=== PATIENT | male | born 1985 | race Caucasian/White ===

== ENCOUNTER 2016-11-07 10:00 | Emergency (ER) | payer SELFPAY ==
--- NOTE | 2016-11-07 10:56 | Emergency Department Report ---
Entered by SWATHI OSORIO, acting as scribe for JULIANNA FLORES PA. Chief Complaint: Head Injury Stated Complaint: HEAD INJURY WHILE WORKING Time Seen by Provider: 11/07/16 10:16 - HPI History of Present Illness: 31 y/o pt presents with pressure in his head and both ears as a result of an overhead door hitting him in the head at work 8 days ago. Pt notes head trauma and LOC for 1-2 seconds. Sx include inability to sleep, dizziness and neck pain but pt denies ear drainage or bleeding. He notes being evaluated at [facility] after the incident. - ROS Review of Systems: as noted in HPI - Exam Vital Signs: Vital Signs 11/07/16 10:16 Temperature 98.3 F Pulse Rate 75 Respiratory 17 Rate Blood Pressure 119/84 O2 Sat by Pulse 100 Oximetry Physical Exam: General: 31 y/o male in no acute distress. Well-developed, well-nourished. CV: Regular rate and rhythm. No murmurs rubs or gallops. Lungs: Clear to auscultation bilaterally. Abdomen: No tenderness to palpation. No guarding or rebound tenderness. Normal bowel sounds. Mini Neuro: Alert and oriented 3. Ear: Symmetrical, atraumatic, non tender, ear canal clear with moderate cerumen , tympanic membrane non inflamed. Gross auditory nml bilaterally. Neurological: no neurological focal deficits, motor strength was 5/5 in the upper and lower extremities. , sensory function was intact. Head: atraumatic MSE screening note: Focused history and physical exam performed. Due to findings the following was ordered: ED Medical Decision Making - Medical Decision Making ct head was ordered, Dr. Martinez stated patient only needed CT head. Patient was in NAD. no neurological focal deficits. ED Disposition for MSE Condition: Stable This documentation as recorded by the scribe,SWATHI OSORIO,accurately reflects the service I personally performed and the decisions made by ,JULIANNA FLORES PA.
--- NOTE | 2016-11-07 11:25 | Cat Scan Report ---
CT HEAD WITHOUT CONTRAST INDICATION: Head trauma, headache. COMPARISON: None similar at this institution. FINDINGS: Noncontrast head CT demonstrates normal ventricles and sulci without acute or recent infarct, hemorrhage, mass effect or midline shift. No abnormal extra-axial fluid collections. Posterior fossa structures and basilar cisterns appear within normal limits. Clear paranasal sinuses and mastoid air cells. Intact calvarium. Normal overlying scalp soft tissues. CONCLUSION: No acute intracranial CT abnormality, as described. Thank you for the opportunity to participate in this patient's care.
--- NOTE | 2016-11-07 14:13 | Emergency Department Report ---
ED Head Trauma HPI - General Chief complaint: Head Injury Stated complaint: HEAD INJURY WHILE WORKING Time Seen by Provider: 11/07/16 12:10 Source: patient Mode of arrival: Ambulatory Limitations: No Limitations - History of Present Illness MD Complaint: head injury -: days(s) Mechanism of Injury: work related injury (item fell on head) Location: parietal Loss of Consciousness: no Previous Trauma to this Area: No Place: work Radiation: none Severity: mild Severity scale (0 -10): 1 Quality: aching Consistency: constant Other Injuries: none Associated Symptoms: confusion, amnesia. denies: repetitive questioning, vision changes, nausea, vomiting, vertigo, syncope, numbness, weakness, tingling , neck pain - Related Data Home Medications Medication Instructions Recorded Confirmed Last Taken Ibuprofen [Motrin 600 MG tab] 600 mg PO TID 11/07/16 11/07/16 11/07/16 Meclizine [Antivert] 25 mg PO DAILY 11/07/16 11/07/16 11/07/16 Allergies/Adverse reactions: Allergies Allergy/AdvReac Type Severity Reaction Status Date / Time No Known Allergies Allergy Unverified 11/07/16 10:20 ED Review of Systems ROS: Stated complaint: HEAD INJURY WHILE WORKING Other details as noted in HPI Other: GENERAL: No weight change, fatigue, weakness, fever, chills, or night sweats SKIN: No changes in skin or hair, no itching, no rashes, no jaundice HEAD: No trauma, headache, or visual changes EYES: No blurriness, tearing, itching, acute visual loss, conjunctival discoloration, or scleral icterus EARS: No hearing loss, tinnitus, vertigo, or earache NOSE: No rhinorrhea, stuffiness, sneezing, itching, or epistaxis MOUTH: No bleeding gums, hoarseness, sore throat, or swelling CARDIAC: No new murmur, chest pain, palpitations, dyspnea on exertion, orthopnea , PND, or edema RESPIRATORY: No shortness of breath, wheeze, cough, sputum production, hemoptysis, pneumonia, asthma, bronchitis, or emphysema GI: No change in appetite, nausea, vomiting, dysphagia, change in bowel frequency, diarrhea, constipation, bleeding, hematemesis, melena, hematochezia, or abdominal pain URINARY: No frequency, urgency, polyuria, dysuria, hematuria, or incontinence MUSCULOSKELETAL: No muscle weakness, joint stiffness, decrease in range of motion, redness, swelling, tenderness NEUROLOGIC: No loss of sensation, numbness, tingling, tremors, weakness, paralysis, seizures HEMATOLOGIC: No anemia, easy bruising, bleeding, petechiae, or purpura ENDOCRINE: No hot or cold intolerance, sweating, polyuria, polydipsia or, polyphagia no thyroid problems PSYCHIATRIC: No change in mood, no anxiety, no depression ED Past Medical Hx - Past Medical History Previous Medical History?: No - Surgical History Past Surgical History?: No - Social History Smoking Status: Never Smoker Substance Use Type: None - Medications Home Medications: Home Medications Medication Instructions Recorded Confirmed Last Taken Type Ibuprofen [Motrin 600 MG tab] 600 mg PO TID 11/07/16 11/07/16 11/07/16 History Meclizine [Antivert] 25 mg PO DAILY 11/07/16 11/07/16 11/07/16 History ED Physical Exam - General Limitations: No Limitations - Other Other exam information: GENERAL: Patient in no acute distress HEAD: Normocephalic, atraumatic EYES: PERRLA, EOM intact, no scleral icterus, no papilledema, no conjunctival hemorrhage, visual gonzalez and acuity wnl, NOSE: No tenderness, discharge, sinus tenderness MOUTH: No erythema, bleeding, exudate HEART: Regular rate and rhythm, no murmur, S1-S2 are auscultated, pulses are symmetric LUNGS: No wheezing, rales, rhonchi, bilateral breath sounds ABDOMEN: Normal bowel sounds, no tenderness, no rebound, no guarding, no masses , no CVA tenderness MUSCULOSKELETAL: Normal joint range of motion, no redness, no swelling, no tenderness NEUROLOGIC: GCS 15, Alert and Oriented x3, Cranial nerves intact, normal sensation, normal strength, normal gait, no cerebellar deficit PSYCHIATRIC: No homicidal or suicidal ideation, no anxiety, no depression, no hallucinations SKIN: Skin is warm and dry, no wounds, no rashes ED Course Vital Signs 11/07/16 11/07/16 11/07/16 10:16 11:55 13:00 Temperature 98.3 F 98.1 F 98.7 F Pulse Rate 75 68 68 Respiratory 17 18 14 Rate Blood Pressure 119/84 Blood Pressure 113/75 115/2 [Left] O2 Sat by Pulse 100 100 100 Oximetry - Radiology Data Radiology results: report reviewed - Medical Decision Making Patient comfortable. Updated with results. Plan discharge with outpatient follow-up. Patient agrees with plan and will return if symptoms worsen. Critical care attestation.: If time is entered above; I have spent that time in minutes in the direct care of this critically ill patient, excluding procedure time. ED Disposition Clinical Impression: Head contusion Qualifiers: Encounter type: initial encounter Contusion of head detail: unspecified part of head Qualified Code(s): S00.93XA - Contusion of unspecified part of head, initial encounter Concussion Qualifiers: Encounter type: initial encounter Loss of consciousness presence/duration: without LOC Qualified Code(s): S06.0X0A - Concussion without loss of consciousness, initial encounter Disposition: DISCHARGED TO HOME OR SELFCARE Is pt being admited?: No Condition: Stable Instructions: Concussion (ED) Referrals: PRIMARY CAREMD [Primary Care Provider] - 2-3 Days JUSTIN PAK MD [Staff Physician] - 2-3 Days Time of Disposition: 14:08
[2016-11-07 15:24] VITALS: BP 115/2
== END 2016-11-07 14:18 | disposition home or self-care (01) ==
LOC: ED 10:00
DX: S06.0X0A Concussion without loss of consciousness, initial encounter (principal); S00.93XA Contusion of unspecified part of head, initial encounter; W20.8XXA Other cause of strike by thrown, projected or falling object, initial encounter; Y93.9 Activity, unspecified; Y92.9 Unspecified place or not applicable; Y99.9 Unspecified external cause status
CPT/HCPCS: 70450; 99283

== ENCOUNTER 2017-04-25 11:37 | Inpatient (IN) | payer SELFPAY ==
--- NOTE | 2017-04-25 15:37 | XRay Report ---
Right ankle 3 views: History: Ankle pain. Findings: No bony or articular abnormality. No fracture dislocation or soft tissue calcification. Impression: Essentially negative right ankle.
--- NOTE | 2017-04-25 15:38 | XRay Report ---
Right foot 3 views: History: 14 ankle pain. Findings: No bony or articular abnormality. No fracture dislocation or periosteal reaction. Impression: Essentially negative right foot.
[2017-04-25] MEDS ORDERED: ZOSYN/NS 4.5GM/100ML 4.5 GM/100 ML VIAL IV ONE (16:04)
[2017-04-25] MEDS ORDERED: VANCOMYCIN/NS 1 GM/250 ML 1 GM/250 ML BAG IV ONE (16:04)
--- NOTE | 2017-04-25 16:16 | Emergency Department Report ---
<NING CHERRY - Last Filed: 04/25/17 17:40> ED Lower Extremity HPI - General Chief Complaint: Extremity Injury, Lower Stated Complaint: RIGHT LEG AND ANKLE PAIN Time Seen by Provider: 04/25/17 14:33 - Related Data Home Medications Medication Instructions Recorded Confirmed Last Taken No Known Home Medications [No 04/25/17 04/25/17 Unknown Reported Home Medications] Allergies Allergy/AdvReac Type Severity Reaction Status Date / Time No Known Allergies Allergy Unverified 11/07/16 10:20 ED Review of Systems ROS: Stated complaint: RIGHT LEG AND ANKLE PAIN Other details as noted in HPI ED Past Medical Hx - Medications Home Medications: Home Medications Medication Instructions Recorded Confirmed Last Taken Type No Known Home Medications [No 04/25/17 04/25/17 Unknown History Reported Home Medications] ED Course Vital Signs 04/25/17 04/25/17 11:47 17:49 Temperature 99.1 F Pulse Rate 100 H Respiratory 18 18 Rate Blood Pressure 122/84 O2 Sat by Pulse 99 Oximetry ED Lower Extremity MDM - Lab Data Result diagrams: 04/25/17 16:08 04/25/17 16:08 Laboratory Results - last 24 hr 04/25/17 04/25/17 04/25/17 16:08 16:08 16:08 WBC 14.0 H RBC 5.16 H Hgb 15.9 H Hct 47.0 H MCV 91 MCH 31 MCHC 34 RDW 13.4 Plt Count 217 Lymph % (Auto) 7.1 L [place] % (Auto) 6.0 Eos % (Auto) 0.0 Baso % (Auto) 0.1 Lymph # 1.0 L [place] # 0.8 Eos # 0.0 Baso # 0.0 Seg Neutrophils % 86.8 H Seg Neutrophils # 12.2 H Sodium 143 Potassium 4.6 Chloride 101.0 Carbon Dioxide 29 Anion Gap 18 BUN 10 Creatinine 0.8 Estimated GFR > 60 BUN/Creatinine Ratio 13 Glucose 132 H Lactic Acid 2.40 H* Calcium 9.3 Total Bilirubin 1.00 AST 57 H ALT 149 H Alkaline Phosphatase 110 C-Reactive Protein 7.60 H Total Protein 7.2 Albumin 4.4 Albumin/Globulin Ratio 1.6 - Medical Decision Making I have seen and examined this patient myself. I agree with the PA or [employer] plan as discussed. Tino Cherry Critical care attestation.: If time is entered above; I have spent that time in minutes in the direct care of this critically ill patient, excluding procedure time. ED Disposition Clinical Impression: Cellulitis Qualifiers: Site of cellulitis: extremity Site of cellulitis of extremity: lower extremity Laterality: right Qualified Code(s): L03.115 - Cellulitis of right lower limb Disposition: OP ADMIT IP TO THIS HOSP Condition: Stable Referrals: PRIMARY CARE, [Primary Care Provider] - 3-5 Days <AVTAR ARELLANO - Last Filed: 04/25/17 18:24> ED Lower Extremity HPI - General Source: patient Mode of arrival: Ambulatory Limitations: Other - History of Present Illness Initial Comments: This is a 32-year-old male nontoxic, well nourished in appearance, no acute signs of distress presents to the ED complaining of right ankle pain and swelling 2 days. Patient stated he woke up one day and developed this with any trauma. Patient denies any numbness, tingling, fever, chills, nausea, vomiting, chest pain, headache or stiff neck. Patient stated he has limited range of motion due to pain and swelling. Patient also stated area is erythema present. Patient denies any allergies or past medical history. Complaint: ankle injury -: Gradual, days(s) (2) Injury: Ankle: Right Place: home Severity: moderate Severity scale (0 -10): 8 Improves With: nothing Worsens With: weight bearing, movement, palpation Associated Symptoms: swelling, unable to bear weight. denies: snap/pop sensation, numbness, tingling ED Review of Systems Constitutional: denies: chills, fever Eyes: denies: eye pain, eye discharge, vision change ENT: denies: ear pain, throat pain Respiratory: denies: cough, shortness of breath, wheezing Cardiovascular: denies: chest pain, palpitations Endocrine: no symptoms reported Gastrointestinal: denies: abdominal pain, nausea, diarrhea Genitourinary: denies: urgency, dysuria Musculoskeletal: denies: back pain, joint swelling, arthralgia Skin: denies: rash, lesions Neurological: denies: headache, weakness, paresthesias Psychiatric: denies: anxiety, depression Hematological/Lymphatic: denies: easy bleeding, easy bruising ED Past Medical Hx - Past Medical History Previous Medical History?: No - Surgical History Past Surgical History?: No - Social History Smoking Status: Never Smoker Substance Use Type: None ED Physical Exam - General Limitations: Other General appearance: alert, in no apparent distress - Head Head exam: Present: atraumatic, normocephalic, normal inspection - Eye Eye exam: Present: normal appearance, PERRL, EOMI. Absent: scleral icterus, conjunctival injection, nystagmus, periorbital swelling, periorbital tenderness Pupils: Present: normal accommodation - ENT ENT exam: Present: normal exam, normal orophraynx, mucous membranes moist, TM's normal bilaterally, normal external ear exam - Neck Neck exam: Present: normal inspection, full ROM. Absent: tenderness, meningismus, lymphadenopathy, thyromegaly - Respiratory Respiratory exam: Present: normal lung sounds bilaterally. Absent: respiratory distress, wheezes, rales, rhonchi, stridor, chest wall tenderness, accessory muscle use, decreased breath sounds, prolonged expiratory - Cardiovascular Cardiovascular Exam: Present: regular rate, normal rhythm, tachycardia, normal heart sounds. Absent: bradycardia, irregular rhythm, systolic murmur, diastolic murmur, rubs, gallop - GI/Abdominal GI/Abdominal exam: Present: soft, normal bowel sounds. Absent: distended, tenderness, guarding, rebound, rigid, diminished bowel sounds - Rectal Rectal exam: Present: deferred - Extremities Exam Extremities exam: Present: normal inspection, full ROM, tenderness, normal capillary refill. Absent: pedal edema, joint swelling, calf tenderness - Expanded Lower Extremity Exam Right Hip exam: Present: normal inspection, full ROM Upper Leg exam: Present: normal inspection, full ROM Knee exam: Present: normal inspection, full ROM Lower Leg exam: Present: normal inspection, full ROM. Absent: Glen's sign Ankle exam: Present: normal inspection, tenderness, swelling, erythema. Absent : full ROM, abrasion, laceration, ecchymosis, deformity, crepidus, dislocation, anterior draw sign Foot/Toe exam: Present: normal inspection, full ROM. Absent: tenderness, swelling, abrasion, laceration, ecchymosis, deformity, crepidus, dislocation, erythema, amputation, puncture wound, foreign body, calcaneal tenderness, tenderness at base of 5th metatarsal, nail avulsion, subungual hematoma Neuro vascular tendon exam: Present: no vascular compromise. Absent: pulse deficit, abnormal cap refill, motor deficit, sensory deficit, tendon deficit, extremity cold to touch, pallor, abnormal 2-point discrimination, decreased fine /light touch, foot drop, peroneal nerve deficit, significant pain with passive ROM of distal joint Gait: Positive: unable to bear weight 1 - Tenderness, erythema and swelling - Back Exam Back exam: Present: normal inspection, full ROM. Absent: tenderness, CVA tenderness (R), CVA tenderness (L), muscle spasm, paraspinal tenderness, vertebral tenderness, rash noted - Neurological Exam Neurological exam: Present: alert, oriented X3, CN II-XII intact, normal gait, reflexes normal - Psychiatric Psychiatric exam: Present: normal affect, normal mood - Skin Skin exam: Present: warm, dry, intact, normal color. Absent: rash ED Course - Reevaluation(s) Reevaluation #1: 04/25/17 16:15 Patient is speaking in full sentences with no signs of distress noted. - Consultations Consultation #1: 04/25/17 16:15 Dr. Cherry was consulted about patient history, physical exam and exam patient and agrees the plan of care and the ED. Consultation #2: 04/25/17 18:20 Dr. Carbajal was consulted about patient history, physical exam, and labs and agrees for admission under his services. Consultation #3: 04/25/17 18:24 Dr. Zhou was consulted about patient hx, physical exam, and labs and agrees to admission. ED Lower Extremity MDM - Lab Data Result diagrams: 04/25/17 16:08 04/25/17 16:08 - Radiology Data Radiology results: report reviewed interpreted by me: Dictated by radiologist Normal foot and ankle xray - Medical Decision Making 32-year-old male that presents with cellulitis of the right ankle. Patient was examined by me, Dr. Cherry, and Dr. Carbajal. CBC, BMP, uric acid, lactic acid , ESR, CRP obtained with suggestion of infection/cellulitis. Patient is stable. Patient was put on campus monitor. Patient received Zosyn and vancomycin in the ED. Dr. Carbajal accepted the patient on his services. Dr. Zhou was also consulted and agrees about admission. Patient is hemodynamically stable with stable vital signs. At time time of admission, the patient does not seem toxic or ill in appearance. No acute signs of distress noted. Patient agrees to admission treatment plan of care. No further questions noted by the patient. ED Disposition Is pt being admited?: Yes Does the pt Need Aspirin: No
[2017-04-25 16:33] LABS: Basophils % (Auto) 0.1 % (0.0-1.8); Hemoglobin 15.9 gm/dl (11.8-15.2); Mean Corpuscular HGB Conc 34 % (32-34); Mean Corpuscular Hemoglobin 31 pg (28-32); Mean Corpuscular Volume 91 fl (84-94); Platelet Count 217 K/mm3 (140-440); Red Blood Count 5.16 M/mm3 (3.65-5.03); Red Cell Distribution Width 13.4 % (13.2-15.2)
[2017-04-25 16:46] LABS: Alanine Aminotransferase 149 units/L (7-56); Albumin 4.4 g/dL (3.9-5); Albumin/Globulin Ratio 1.6 %; Alkaline Phosphatase 110 units/L (35-129); Anion Gap 18 mmol/L; BUN/Creatinine Ratio 13; Blood Urea Nitrogen 10 mg/dL (9-20); Calcium 9.3 mg/dL (8.4-10.2); Carbon Dioxide 29 mmol/L (22-30); Glucose 132 mg/dL (75-100); Potassium 4.6 mmol/L (3.6-5.0); Sodium 143 mmol/L (137-145); Total Protein 7.2 g/dL (6.3-8.2)
[2017-04-25] MEDS ORDERED: MORPHINE IV ONE (17:28)
[2017-04-25] MEDS ORDERED: TORADOL IV ONE (17:29)
[2017-04-25 18:24] LABS: Erythrocyte Sedimentation Rate 66 mm/Hr (0-20)
[2017-04-25] MEDS ORDERED: PERCOCET 5/325 PO PRN (19:40)
[2017-04-25] MEDS ORDERED: TYLENOL PO PRN (19:40)
[2017-04-25] MEDS ORDERED: MILK OF MAGNESIA PO PRN (19:40)
[2017-04-25] MEDS ORDERED: MORPHINE IV PRN (19:40)
[2017-04-25] MEDS ORDERED: ZOFRAN IV PRN (19:40)
[2017-04-25] MEDS ORDERED: DULCOLAX PR PRN (19:40)
[2017-04-25] MEDS ORDERED: MOTRIN PO PRN (19:53)
[2017-04-25] MEDS ORDERED: VANCOMYCIN 1,500 MG in NACL 0.9% 500 ML 500 ML IV ONE (20:00)
[2017-04-25] MEDS ORDERED: VANCOMYCIN PHARMACY TO DOSE IV SCH (20:00)
[2017-04-25] MEDS ORDERED: UNASYN/NS 3 GM/100 ML 3 GM/100 ML BAG IV ONE (21:19)
[2017-04-25] MEDS ORDERED: LOVENOX SUB-Q ONE (21:20)
[2017-04-25] MEDS: UNASYN/NS 3 GM/100 ML 3 GM/100 ML BAG IV SCH (21:20)
[2017-04-25] MEDS: LOVENOX SUB-Q SCH (21:30)
[2017-04-25] MEDS ORDERED: PERCOCET 5/325 ONE (21:56)
[2017-04-26] MEDS: UNASYN/NS 3 GM/100 ML 3 GM/100 ML BAG IV SCH
[2017-04-26] MEDS ORDERED: UNASYN/NS 3 GM/100 ML 3 GM/100 ML BAG IV ONE (01:08)
[2017-04-26] MEDS ORDERED: UNASYN/NS 3 GM/100 ML 3 GM/100 ML BAG IV SCH (03:00)
[2017-04-26 06:14] LABS: Hematocrit 44.7 % (35.5-45.6); Hemoglobin 15.7 gm/dl (11.8-15.2); Mean Corpuscular HGB Conc 35 % (32-34); Mean Corpuscular Hemoglobin 32 pg (28-32); Mean Corpuscular Volume 90 fl (84-94); Platelet Count 184 K/mm3 (140-440); Red Blood Count 4.98 M/mm3 (3.65-5.03); Red Cell Distribution Width 13.2 % (13.2-15.2); White Blood Count 12.5 K/mm3 (4.5-11.0)
[2017-04-26 06:37] LABS: Albumin 3.5 g/dL (3.9-5); Albumin/Globulin Ratio 0.9 %; Bilirubin,Total 1.5 mg/dL (0.1-1.2); Calcium 8.8 mg/dL (8.4-10.2); Chloride 99.4 mmol/L (98-107); Potassium 4.4 mmol/L (3.6-5.0); Total Protein 7.3 g/dL (6.3-8.2)
[2017-04-26 07:22] LABS: Basophils % (Manual) 0 % (0.0-1.8); Blastocytes % (Manual) 0 %; Eosinophils % (Manual) 0 % (0.0-4.3)
[2017-04-26 07:23] LABS: Anisocytosis 1+; Diff Status Complete; Giant Platelets Few
--- NOTE | 2017-04-26 07:49 | Event Note ---
Date: 04/25/17 See H and p in reports-Dictated
[2017-04-26] MEDS ORDERED: VANCOMYCIN/NS 1 GM/250 ML 1 GM/250 ML BAG IV SCH ×3 (09:00→18:00)
[2017-04-26] MEDS: NACL 0.9% 1000 ML 1,000 ML IV SCH ×2 (09:22→19:37)
[2017-04-26] MEDS: LOVENOX SUB-Q SCH (09:22)
--- NOTE | 2017-04-26 09:40 | History and Physical Report ---
CHIEF COMPLAINT: Right ankle swelling and redness of 1 week duration. HISTORY OF PRESENT ILLNESS: A 32-year-old male comes in for right ankle pain and swelling of 1 week, more so over the last 2 days. He developed right lateral malleolus redness and swelling and has difficulty walking, but no preceding trauma. This was preceded by left elbow redness and pain, which has resolved spontaneously. He has limited range of motion of the right ankle. PAST MEDICAL HISTORY: past medical history. SURGICAL HISTORY: None. SOCIAL HISTORY: Does not smoke. No alcohol, no recreational drugs. FAMILY HISTORY: No hypertension, no diabetes. REVIEW OF SYSTEMS: A 14-point review of systems is done, otherwise negative. No urethral discharge. No history of gout. PHYSICAL EXAMINATION: GENERAL: Young male, cooperative during examination. VITAL SIGNS: Blood pressure is 110/70, respirations 16, temperature 98, pulse is 80. HEENT: Unremarkable. Pupils equal and reactive. NECK: Supple, no lymphadenopathy, no thyromegaly. LUNGS: Clear to auscultation and percussion. Good air entry. CARDIOVASCULAR: S1, S2 heard. No gallop, no murmur, no rub. Apical impulse in left fifth intercostal space and midclavicular line. ABDOMEN: Soft and benign. No hepatosplenomegaly. No guarding, no rigidity. Hernial orifices are normal. EXTREMITIES: Radial motion of hip and knees are normal. Ankle tenderness and swelling and erythema present on the right ankle. Full range of motion is absent. Foot and toe are otherwise normal. Pedal pulses are normal. CENTRAL NERVOUS SYSTEM: Normal. LABORATORY DATA: Labs were significant for white count of 14,000, H and H of 15.9 and 47.4. CRP was high, lactic acid was 2.4. Electrolytes are normal. Glucose is 132. Uric acid was 5.4. CRP was 7.6. ASSESSMENT AND PLAN: Right ankle cellulitis, etiology very unclear. Differential diagnosis of gout still present. Uric acid is normal. We will treat it as infection. We will ask for Infectious Disease consult. The patient started on antibiotics in the form of Unasyn and vancomycin. Also, the patient started on methylprednisolone 40 mg IV to decrease the inflammation. RPR ordered. Gonococcal arthritis also in the differential diagnosis. We will defer to ID regarding the differential diagnosis. Deep venous thrombosis prophylaxis, Lovenox 40 mg subcutaneous daily. JOB# [id number] RIZWAN/SAMANTHA
--- NOTE | 2017-04-26 11:09 | Progress Note ---
Assessment and Plan Assessment and plan: Cellulitis right leg Hospitalist Physical - Physical exam Narrative exam: Gen Appearance: Not in acute distress, HEENT: normocephalic, atraumatic Neck: supple, no JVD Lungs: Clear to auscultation, no rales, no wheezing, Heart: S1 and S2 regular, no murmurs,no rubs or gallop, Abdomen: Soft , non tender, non distended, normal bowel sounds Extremity: right leg erythema,tender,swollen, no clubbing or cyanosis, Neuro : Awake,alert, oriented x 3, normal speech, moves all extremities Psych: Normal mood - Constitutional Vitals: Temp Pulse Resp BP Pulse Ox 98.6 F 85 20 117/73 98 04/26/17 07:26 04/26/17 07:26 04/26/17 07:26 04/26/17 07:26 04/26/17 07:26 Results - Labs CBC & Chem 7: 04/26/17 05:45 04/27/17 10:54 Labs: Laboratory Last Values WBC 12.5 K/mm3 (4.5-11.0) H 04/26/17 05:45 RBC 4.98 M/mm3 (3.65-5.03) 04/26/17 05:45 Hgb 15.7 gm/dl (11.8-15.2) H 04/26/17 05:45 Hct 44.7 % (35.5-45.6) 04/26/17 05:45 MCV 90 fl (84-94) 04/26/17 05:45 MCH 32 pg (28-32) 04/26/17 05:45 MCHC 35 % (32-34) H 04/26/17 05:45 RDW 13.2 % (13.2-15.2) 04/26/17 05:45 Plt Count 184 K/mm3 (140-440) 04/26/17 05:45 Lymph % (Auto) 7.1 % (13.4-35.0) L 04/25/17 16:08 [place] % (Auto) 6.0 % (0.0-7.3) 04/25/17 16:08 Eos % (Auto) 0.0 % (0.0-4.3) 04/25/17 16:08 Baso % (Auto) 0.1 % (0.0-1.8) 04/25/17 16:08 Lymph # 1.0 K/mm3 (1.2-5.4) L 04/25/17 16:08 [place] # 0.8 K/mm3 (0.0-0.8) 04/25/17 16:08 Eos # 0.0 K/mm3 (0.0-0.4) 04/25/17 16:08 Baso # 0.0 K/mm3 (0.0-0.1) 04/25/17 16:08 Add Manual Diff Complete 04/26/17 05:45 Total Counted 100 04/26/17 05:45 Seg Neutrophils % Boarding Machine Operator 04/26/17 05:45 Seg Neuts % (Manual) 55.0 % (40.0-70.0) 04/26/17 05:45 Band Neutrophils % 32.0 % 04/26/17 05:45 Lymphocytes % (Manual) 10.0 % (13.4-35.0) L 04/26/17 05:45 Reactive Lymphs % (Man) 0 % 04/26/17 05:45 Monocytes % (Manual) 3.0 % (0.0-7.3) 04/26/17 05:45 Eosinophils % (Manual) 0 % (0.0-4.3) 04/26/17 05:45 Basophils % (Manual) 0 % (0.0-1.8) 04/26/17 05:45 Metamyelocytes % 0 % 04/26/17 05:45 Myelocytes % 0 % 04/26/17 05:45 Promyelocytes % 0 % 04/26/17 05:45 Blast Cells % 0 % 04/26/17 05:45 Nucleated RBC % Not Reportable 04/26/17 05:45 Seg Neutrophils # 12.2 K/mm3 (1.8-7.7) H 04/25/17 16:08 Seg Neutrophils # Man 6.9 K/mm3 (1.8-7.7) 04/26/17 05:45 Band Neutrophils # 4.0 K/mm3 04/26/17 05:45 Lymphocytes # (Manual) 1.3 K/mm3 (1.2-5.4) 04/26/17 05:45 Abs React Lymphs (Man) 0.0 K/mm3 04/26/17 05:45 Monocytes # (Manual) 0.4 K/mm3 (0.0-0.8) 04/26/17 05:45 Eosinophils # (Manual) 0.0 K/mm3 (0.0-0.4) 04/26/17 05:45 Basophils # (Manual) 0.0 K/mm3 (0.0-0.1) 04/26/17 05:45 Metamyelocytes # 0.0 K/mm3 04/26/17 05:45 Myelocytes # 0.0 K/mm3 04/26/17 05:45 Promyelocytes # 0.0 K/mm3 04/26/17 05:45 Blast Cells # 0.0 K/mm3 04/26/17 05:45 WBC Morphology Not Reportable 04/26/17 05:45 Hypersegmented Neuts Not Reportable 04/26/17 05:45 Hyposegmented Neuts Not Reportable 04/26/17 05:45 Hypogranular Neuts Not Reportable 04/26/17 05:45 Smudge Cells Not Reportable 04/26/17 05:45 Toxic Granulation Not Reportable 04/26/17 05:45 Toxic Vacuolation Not Reportable 04/26/17 05:45 Dohle Bodies Not Reportable 04/26/17 05:45 Pelger-Huet Anomaly Not Reportable 04/26/17 05:45 Cassandra Rods Not Reportable 04/26/17 05:45 Platelet Estimate Appears normal 04/26/17 05:45 Clumped Platelets Not Reportable 04/26/17 05:45 Plt Clumps, EDTA Not Reportable 04/26/17 05:45 Large Platelets Not Reportable 04/26/17 05:45 Giant Platelets Few 04/26/17 05:45 Platelet Satelliting Not Reportable 04/26/17 05:45 Plt Morphology Comment Not Reportable 04/26/17 05:45 RBC Morphology Not Reportable 04/26/17 05:45 Dimorphic RBCs Not Reportable 04/26/17 05:45 Polychromasia Not Reportable 04/26/17 05:45 Hypochromasia Not Reportable 04/26/17 05:45 Poikilocytosis Not Reportable 04/26/17 05:45 Anisocytosis 1+ 04/26/17 05:45 Microcytosis Not Reportable 04/26/17 05:45 Macrocytosis Not Reportable 04/26/17 05:45 Spherocytes Not Reportable 04/26/17 05:45 Pappenheimer Bodies Not Reportable 04/26/17 05:45 Sickle Cells Not Reportable 04/26/17 05:45 Target Cells Not Reportable 04/26/17 05:45 Tear Drop Cells Not Reportable 04/26/17 05:45 Ovalocytes Not Reportable 04/26/17 05:45 Helmet Cells Not Reportable 04/26/17 05:45 [place] Bodies Not Reportable 04/26/17 05:45 [place] Rings Not Reportable 04/26/17 05:45 [place] Cells Not Reportable 04/26/17 05:45 Bite Cells Not Reportable 04/26/17 05:45 Crenated Cell Not Reportable 04/26/17 05:45 Elliptocytes Not Reportable 04/26/17 05:45 Acanthocytes (Spur) Not Reportable 04/26/17 05:45 Rouleaux Not Reportable 04/26/17 05:45 Hemoglobin C Crystals Not Reportable 04/26/17 05:45 Schistocytes Not Reportable 04/26/17 05:45 Malaria parasites Not Reportable 04/26/17 05:45 ESR 66 mm/Hr (0-20) 04/25/17 16:08 Asa Bodies Not Reportable 04/26/17 05:45 Hem Pathologist Commnt No 04/26/17 05:45 Sodium 137 mmol/L (137-145) 04/26/17 05:45 Potassium 4.4 mmol/L (3.6-5.0) 04/26/17 05:45 Chloride 99.4 mmol/L (98-107) 04/26/17 05:45 Carbon Dioxide 25 mmol/L (22-30) 04/26/17 05:45 Anion Gap 17 mmol/L 04/26/17 05:45 BUN 20 mg/dL (9-20) 04/26/17 05:45 Creatinine 1.6 mg/dL (0.8-1.5) H D 04/26/17 05:45 Estimated GFR 50 ml/min 04/26/17 05:45 BUN/Creatinine Ratio 13 % 04/26/17 05:45 Glucose 157 mg/dL (75-100) H 04/26/17 05:45 Lactic Acid 2.40 mmol/L (0.7-2.0) H* 04/25/17 16:08 Uric Acid 5.4 mg/dL (3.5-7.6) 04/25/17 16:08 Calcium 8.8 mg/dL (8.4-10.2) 04/26/17 05:45 Total Bilirubin 1.50 mg/dL (0.1-1.2) H 04/26/17 05:45 AST 49 units/L (5-40) H 04/26/17 05:45 ALT 126 units/L (7-56) H 04/26/17 05:45 Alkaline Phosphatase 86 units/L (35-129) 04/26/17 05:45 C-Reactive Protein 7.60 mg/dL (0.00-1.30) H 04/25/17 16:08 Total Protein 7.3 g/dL (6.3-8.2) 04/26/17 05:45 Albumin 3.5 g/dL (3.9-5) L 04/26/17 05:45 Albumin/Globulin Ratio 0.9 % 04/26/17 05:45
--- NOTE | 2017-04-26 12:36 | Consultation ---
History of Present Illness - Reason for Consult Consult date: 04/26/17 SIRS Requesting physician: TISHA CARRERA - History of Present Illness 32 years old male with non known past medical history, admitted on 04/25/2017 due to left elbow swelling and pain, as well as, right ankle swelling and pain. Patient reports that a week before admission, he noticed left elbow swelling and tenderness. Patient was placing ice packs to decrease the swelling however 2 days later he noticed his left ankle became also swollen, red and tender. Patient was no able to walk or step on that foot. Patient also was complaining of subjective fever for 3 days. Denies N/V/D, skin rash, trauma or injury. Denies any previous STDs. Patient is a MSM with one sexual partner, condom usage is inconsistent. Patient reports they were tested for HIV back in September 2016 and results were negative. In the emergency room, initial temperature was 99.1, heart rate 100, blood pressure 122/89. Initial white count was 14,000. Lactic acid was 2.4. Creatinine 0.8. CRP 7.6. XR right ankle was negative. Microbiology: Blood cultures: 04/15 ngtd Urine cultures: Respiratory cultures: Wound cultures: Stool cultures: Other: Past History Past Medical History: No medical history Past Surgical History: No surgical history Social history: single, other (MSM). denies: alcohol abuse, prescription drug abuse, IV drug use Family history: no significant family history Medications and Allergies Allergies Allergy/AdvReac Type Severity Reaction Status Date / Time No Known Allergies Allergy Unverified 11/07/16 10:20 Home Medications Medication Instructions Recorded Confirmed Last Taken Type No Known Home Medications [No 04/25/17 04/25/17 Unknown History Reported Home Medications] Active Meds: Active Medications Acetaminophen (Tylenol) 650 mg PO Q4H PRN PRN Reason: Pain MILD(1-3)/Fever >100.5/MELLO Bisacodyl (Dulcolax) 10 mg VA QDAY PRN PRN Reason: Constipation unrelieved by MOM Enoxaparin Sodium (Lovenox) 40 mg SUB-Q QDAY [facility] Last Admin: 04/26/17 09:22 Dose: 40 mg Ampicillin Sodium/Sulbactam Sodium (Unasyn/Ns 3 Gm/100 Ml) 3 gm in 100 mls @ 100 mls/hr IV Q6H SEBASTIEN PRN Reason: Protocol Last Admin: 04/26/17 02:58 Dose: 100 mls/hr Sodium Chloride (Nacl 0.9% 1000 Ml) 1,000 mls @ 125 mls/hr IV DIRECT SEBASTIEN Last Admin: 04/26/17 09:22 Dose: 125 mls/hr Vancomycin HCl (Vancomycin/Ns 1 Gm/250 Ml) 1 gm in 250 mls @ 167.007 mls/hr IV Q24H SEBASTIEN Magnesium Hydroxide (Milk Of Magnesia) 30 ml PO Q4H PRN PRN Reason: Constipation Methylprednisolone Sodium Succinate (Solu-Medrol) 40 mg IV Q8HR [facility] Last Admin: 04/26/17 07:02 Dose: 40 mg Morphine Sulfate (Morphine) 4 mg IV Q4H PRN PRN Reason: Pain , Severe (7-10) Ondansetron HCl (Zofran) 4 mg IV Q8H PRN PRN Reason: N/V unrelieved by Reglan Oxycodone/Acetaminophen (Percocet 5/325) 1 tab PO Q6H PRN PRN Reason: Pain, Moderate (4-6) Last Admin: 04/25/17 21:55 Dose: 1 tab Vancomycin HCl (Vancomycin Pharmacy To Dose) 1 each IV PKCONSULT SEBASTIEN PRN Reason: Protocol Review of Systems All systems: negative (as per HPI.) Physical Examination - Physical Exam Narrative exam: General appearance: Alert in NAD, conversant Eyes: anicteric sclerae, moist conjunctivae; no lid-lag; PERRLA HENT: Atraumatic; oropharynx clear with moist mucous membranes and no mucosal ulcerations/no oral thrush; normal hard and soft palate. Normal external ears. Neck: Trachea midline; supple, no thyromegaly or lymphadenopathy Lungs: CTA, with normal respiratory effort and no intercostal retractions CV: RRR, no murmurs Abdomen: Soft, non-tender; no masses or hepatosplenomegaly Extremities: + mild left elbow edema and tenderness, + mild right ankle edema and tenderness, no fluctuance Skin: Normal temperature, turgor and texture; no rash, ulcers or subcutaneous nodules Psych: Appropriate affect, alert and oriented to person, place and time. Neuro: alert and oriented x 3. Moving all extermities Lines: No CVL / PICC - Constitutional Vitals: Vital Signs Temp Pulse Resp BP Pulse Ox 98.6 F 85 20 117/73 98 04/26/17 07:26 04/26/17 07:26 04/26/17 07:26 04/26/17 07:26 04/26/17 07:26 Temperature -Last 24 Hours Temperature 98.6 F Temperature 98.3 F Temperature 98.3 F Temperature 98.7 F Temperature 98.8 F Results - Labs CBC & Chem 7: 04/26/17 05:45 04/26/17 05:45 Labs: Abnormal lab results 04/26/17 04/26/17 Range/Units 05:45 05:45 WBC 12.5 H (4.5-11.0) K/mm3 Hgb 15.7 H (11.8-15.2) gm/dl MCHC 35 H (32-34) % Lymphocytes % (Manual) 10.0 L (13.4-35.0) % Creatinine 1.6 H D (0.8-1.5) mg/dL Glucose 157 H (75-100) mg/dL Total Bilirubin 1.50 H (0.1-1.2) mg/dL AST 49 H (5-40) units/L ALT 126 H (7-56) units/L Albumin 3.5 L (3.9-5) g/dL Assessment and Plan Assessment: 1) SIRS: Present on admission, manifested by leukocytosis and increased lactate. Etiology - unclear ? viral ? gonorrhea ? connective tissue disease Plan: -follow-up blood cultures -check Urine GC and chlamydia -check HIV and RPR -check ZULEYKA, ANCA -stop unasyn -start ceftriaxone -XR left elbow Thank you Dr Benson for your consultation, will follow up with you. Ara Potts MD Infectious Diseases Specialist [facility] ([facility]) M [phone] O [phone]
[2017-04-26] MEDS ORDERED: ROCEPHIN/NS 2 GM/100 ML 2 GM/100 ML BAG IV SCH (14:00)
[2017-04-27] MEDS ORDERED: VANCOMYCIN PHARMACY TO DOSE IV SCH (02:00)
[2017-04-27] MEDS: NACL 0.9% 1000 ML 1,000 ML IV SCH (04:54)
[2017-04-27 08:17] VITALS: BP 112/73
[2017-04-27] MEDS: LOVENOX SUB-Q SCH (10:18)
[2017-04-27 12:04] LABS: Anion Gap 18 mmol/L; BUN/Creatinine Ratio 20; Blood Urea Nitrogen 26 mg/dL (9-20); Calcium 8.9 mg/dL (8.4-10.2); Carbon Dioxide 22 mmol/L (22-30); Chloride 109.8 mmol/L (98-107); Glucose 144 mg/dL (75-100); Potassium 4.3 mmol/L (3.6-5.0); Sodium 145 mmol/L (137-145)
--- NOTE | 2017-04-27 13:35 | Progress Note ---
Assessment and Plan Assessment: 1) SIRS / migratory arthritis: improving. Etiology - unclear ? viral ? disseminated gonorrhea ? connective tissue disease. RPR-neg. Doubt septic arthritis. 2) High risk sexual behavior Plan: -follow-up blood cultures -follow-up Urine GC and chlamydia, HIV, ZULEYKA, ANCA -continue ceftriaxone -XR left elbow - pending -if continue to improve, please d/c home on doxycycline 100 mg PO q12h total 10 days from 04/26 until 05/05/17 -pt educated about pending labs and return to the ED if joint become more swollen or fever recurs, he may require joint aspiration. Thank you Dr Benson for your consultation, will follow up with you. Ara Potts MD Infectious Diseases Specialist [facility] ([facility]) M [phone] O [phone] Subjective Date of service: 04/27/17 Principal diagnosis: migratory arthritis Interval history: Feels better, no fever, joint swelling is down and pain improving. Microbiology: Blood cultures: 04/15 ngtd Urine cultures: Respiratory cultures: Wound cultures: Stool cultures: Other: Objective - Exam Narrative Exam: General appearance: Alert in NAD, conversant Eyes: anicteric sclerae, moist conjunctivae; no lid-lag; PERRLA HENT: Atraumatic; oropharynx clear with moist mucous membranes and no mucosal ulcerations/no oral thrush; normal hard and soft palate. Normal external ears. Neck: Trachea midline; supple, no thyromegaly or lymphadenopathy Lungs: CTA, with normal respiratory effort and no intercostal retractions CV: RRR, no murmurs Abdomen: Soft, non-tender; no masses or hepatosplenomegaly Extremities: + mild left elbow edema and tenderness, + mild right ankle edema and tenderness, no fluctuance Skin: Normal temperature, turgor and texture; no rash, ulcers or subcutaneous nodules Psych: Appropriate affect, alert and oriented to person, place and time. Neuro: alert and oriented x 3. Moving all extermities Lines: No CVL / PICC - Constitutional Vitals: Vital Signs Temp Pulse Resp BP Pulse Ox 98.2 F 91 H 20 112/73 98 04/27/17 07:18 04/27/17 07:18 04/27/17 07:18 04/27/17 07:18 04/27/17 07:18 Temperature -Last 24 Hours Temperature 98.2 F Temperature 98.3 F Temperature 98.5 F - Labs CBC & Chem 7: 04/26/17 05:45 04/27/17 10:54 Labs: Abnormal lab results 04/27/17 Range/Units 10:54 Chloride 109.8 H (98-107) mmol/L BUN 26 H (9-20) mg/dL Glucose 144 H (75-100) mg/dL
--- NOTE | 2017-04-27 14:23 | Discharge Summary ---
Providers - Providers Date of Admission: 04/25/17 19:40 Date of discharge: 04/27/17 Attending physician: MICAELA VICTORIA Primary care physician: NATHAN PROCTOR MD Hospitalization Condition: Good Disposition: DC-01 TO HOME OR SELFCARE - Discharge Diagnoses (1) Cellulitis Status: Acute Qualifiers: Site of cellulitis: extremity Site of cellulitis of extremity: lower extremity Site of cellulitis of trunk: S Laterality: right Qualified Code( s): L03.115 - Cellulitis of right lower limb Core Measure Documentation - Palliative Care Palliative Care/ Comfort Measures: Not Applicable - Core Measures Any of the following diagnoses?: none Exam - Physical Exam Narrative exam: Gen Appearance: Not in acute distress, HEENT: normocephalic, atraumatic Neck: supple, no JVD Lungs: Clear to auscultation, no rales, no wheezing, Heart: S1 and S2 regular, no murmurs,no rubs or gallop, Abdomen: Soft , non tender, non distended, normal bowel sounds Extremity: right leg erythema,tender,swollen, no clubbing or cyanosis, Neuro : Awake,alert, oriented x 3, normal speech, moves all extremities Psych: Normal mood - Constitutional Vitals: Temp Pulse Resp BP Pulse Ox 98.2 F 91 H 20 112/73 98 04/27/17 07:18 04/27/17 07:18 04/27/17 07:18 04/27/17 07:18 04/27/17 07:18 Plan Activity: no restrictions Diet: regular Additional Instructions: 1.Follow up with PCP or [facility] in 1 week Follow up with: PRIMARY CARE, [Primary Care Provider] - 3-5 Days Prescriptions: Doxycycline Monohydrate [Doxycycline Monohydrate CAP] 100 mg PO BID #16 capsule HYDROcodone/ACETAMINOPHEN [[place] 5-325 Tablet] 1 each PO Q6H PRN #10 tablet PRN Reason: Pain
[2017-04-27] MEDS ORDERED: VANCOMYCIN/NS 1 GM/250 ML 1 GM/250 ML BAG IV SCH ×2 (16:00→18:00)
[2017-04-27] MEDS ORDERED: Fluarix Quad 2017-2018(36 MOS+) IM ONE (18:00)
[2017-04-29 14:51] LABS: HIV-1 RNA QN PCR <1.30 Log cps/mL (<1.30); HIV-1 RNA QN PCR <20 copies/mL (<20)
== END 2017-04-27 18:49 | disposition home or self-care (01) | DRG 603 ==
LOC: ED 11:37 → 3A 19:40
PROVIDERS: ADMIT Internal Medicine; ATTEND Internal Medicine
PROC: 3E0234Z Introduction of Serum, Toxoid and Vaccine into Muscle, Percutaneous Approach (ICD-10-PCS; principal; 2017-04-27)
DX: L03.115 Cellulitis of right lower limb (principal); R65.10 Systemic inflammatory response syndrome (SIRS) of non-infectious origin without acute organ dysfunction; Z23 Encounter for immunization
CPT/HCPCS: 36415; 80048; 80053; 82140; 84550; 85007; 85025; 85652; 86038; 86140; 86592; 87040; 87536; 87591; 90686; 96365; 96366; 96375; 99285; J0295; J0696; J1650; J1885; J2270; J2543; J2920; J3370; J7030; J7040